=== PATIENT | female | born 1970 | race Caucasian/White ===

== ENCOUNTER → 2017-03-26 | Outpatient (CLI) | payer OTHER ==
--- NOTE | 2017-03-26 17:30 | REP ---
MRI LEFT ANKLE: TECHNIQUE: Sagittal proton density, STIR, axial proton density fat sat, T1, coronal proton density, STIR. The Achilles, anterior tibial, posterior tibial, flexor halluces longus, and flexor digitorum longus tendons are intact without significant abnormality. The peroneal tendons demonstrate mild increased signal and thickening below the level of the ankle joint just lateral to the lateral margin of the calcaneus. There is mild surrounding fluid around these tendons. The findings are compatible with tendinitis and mild tenosynovitis. There is mild subtendinous marrow edema in the lateral calcaneus. Anterior and posterior talofibular, calcaneofibular and deltoid ligaments are intact. Plantar fascia demonstrates no abnormal signal. There is no plantar fasciitis. Plantar tendon is intact. There is diffuse moderate subcutaneous soft tissue edema anterolaterally. Mild focal superficial soft tissue edema is seen inferior to the calcaneus. No ganglion cyst is seen. No other marrow signal abnormality is seen. The tibiotalar joint appears unremarkable with no osteochondral defect. IMPRESSION: Peroneal tendons are thickened with mild ill-defined high signal on T2-weighted images below the level of the ankle joints, lateral to the calcaneus. There is mild fluid surrounding these tendons. Findings are compatible with tendinopathy and tendinitis with mild tenosynovitis. There is mild subtendinous marrow edema in the lateral aspect of the calcaneus. Moderate superficial soft tissue edema anteriorly and laterally. Mild superficial soft tissue edema inferior to the calcaneus. No ligament tear. Signed by Sanjeev Apple MD 03/29/2017 12:34 P
== END ==
LOC: M RAD 15:34
PROVIDERS: ATTEND Podiatrist
DX: M65.272 Calcific tendinitis, left ankle and foot (principal); M65.872 Other synovitis and tenosynovitis, left ankle and foot

== ENCOUNTER → 2018-07-06 | Outpatient (REF) | payer OTHER ==
[2018-07-06 13:31] LABS: ALBUMIN 3.8 GM/DL (3.2-5.2); ALBUMIN/GLOBULIN RATIO 0.95 (1.00-1.93); ALKALINE PHOSPHATASE 72 U/L (45-117); ALT/SGPT 27 U/L (12-78); ANION GAP 8 MEQ/L (8-16); AST/SGOT 13 U/L (7-37); BILIRUBIN,TOTAL 0.5 MG/DL (0.2-1.0); BLOOD UREA NITROGEN 26 MG/DL (7-18); CALCIUM LEVEL 8.5 MG/DL (8.5-10.1); CARBON DIOXIDE LEVEL 25 MEQ/L (21-32); CHLORIDE LEVEL 106 MEQ/L (98-107); CHOLESTEROL LEVEL 210 MG/DL (<200); CHOLESTEROL RISK RATIO 6.363 (<5); CREATININE FOR GFR 0.98 MG/DL (0.55-1.30); GLOMERULAR FILTRATION RATE > 60.0 (>58); GLUCOSE, FASTING 95 MG/DL (70-100); HDL CHOLESTEROL 33 MG/DL (>40); LDL CHOLESTEROL 138 MG/DL (<100); NON-HDL-C 177 MG/DL; POTASSIUM SERUM 4.3 MEQ/L (3.5-5.1); SODIUM LEVEL 139 MEQ/L (136-145); THYROID STIMULATING HORMONE 0.992 uIU/ML (0.358-3.740); TOTAL PROTEIN 7.8 GM/DL (6.4-8.2); TRIGLYCERIDES LEVEL 194 MG/DL (<150)
== END ==
LOC: M LABDRAW1 12:28
DX: I10 Essential (primary) hypertension (principal); R63.5 Abnormal weight gain

== ENCOUNTER → 2018-07-13 | Outpatient (CLI) | payer OTHER | LOC: M RAD 18:47 | DX: M25.561 Pain in right knee (principal) | CPT/HCPCS: 73564 ==

== ENCOUNTER → 2019-12-06 | Outpatient (REF) | payer OTHER ==
[2019-12-06 13:04] LABS: BASO % 0.6 % (0.0-1.0); EOS # 0.2 10^3/uL (0.0-0.5); EOS % 3.3 % (0.0-3.0); HEMATOCRIT 42.6 % (36.0-47.0); HEMOGLOBIN 13.2 g/dl (12.0-15.5); LYMPH # 1.4 10^3/uL (1.5-5.0); LYMPH % 28.1 % (24.0-44.0); MEAN CORPUSCULAR HEMOGLOBIN 26.8 pg (27.0-33.0); MEAN CORPUSCULAR VOLUME 86.4 fl (80.0-96.0); MONO # 0.5 10^3/uL (0.0-0.8); MONO % 9.4 % (0.0-5.0); NEUTROPHILS % 58.2 % (36.0-66.0); PLATELET COUNT, AUTOMATED 226 10^3/uL (150-450); RED BLOOD COUNT 4.93 10^6/uL (4.00-5.40); WHITE BLOOD COUNT 5.1 10^3/uL (4.0-10.0)
[2019-12-06 13:08] LABS: ALBUMIN 3.8 GM/DL (3.2-5.2); ALT/SGPT 28 U/L (12-78); BILIRUBIN,TOTAL 0.4 MG/DL (0.2-1.0); BLOOD UREA NITROGEN 18 MG/DL (7-18); CALCIUM LEVEL 8.7 MG/DL (8.5-10.1); CARBON DIOXIDE LEVEL 28 MEQ/L (21-32); CHLORIDE LEVEL 107 MEQ/L (98-107); CHOLESTEROL LEVEL 206 MG/DL (<200); CHOLESTEROL RISK RATIO 5.567 (<5); CREATININE FOR GFR 0.82 MG/DL (0.55-1.30); GLOMERULAR FILTRATION RATE > 60.0 (>51); GLUCOSE, FASTING 88 MG/DL (70-100); HDL CHOLESTEROL 37 MG/DL (>40); IRON (FE) 52 UG/DL (50-170); LDL CHOLESTEROL 130 MG/DL (<100); NON-HDL-C 169 MG/DL; PERCENT SATURATION 17.2 % (13.2-45.0); POTASSIUM SERUM 3.9 MEQ/L (3.5-5.1); SODIUM LEVEL 141 MEQ/L (136-145); TOTAL IRON BINDING CAPACITY 303 UG/DL (250-450); TOTAL PROTEIN 7.3 GM/DL (6.4-8.2); TRIGLYCERIDES LEVEL 196 MG/DL (<150)
== END ==
LOC: M LABDRAW1 08:04
PROVIDERS: ATTEND Nurse Practitioner Family
DX: I10 Essential (primary) hypertension (principal); E78.5 Hyperlipidemia, unspecified; Z12.31 Encounter for screening mammogram for malignant neoplasm of breast; D50.8 Other iron deficiency anemias

== ENCOUNTER → 2022-12-01 | Outpatient (REF) | payer OTHER | LOC: M WUC 11:30 | PROVIDERS: ATTEND Physician Assistant | DX: J02.9 Acute pharyngitis, unspecified (principal); Z20.828 Contact with and (suspected) exposure to other viral communicable diseases ==

== ENCOUNTER → 2023-06-24 | Outpatient (REF) | payer OTHER | LOC: M LAB REF 12:23 | PROVIDERS: ATTEND Internal Medicine | DX: R76.8 Other specified abnormal immunological findings in serum (principal) ==